=== PATIENT | male | born 1940 | race Caucasian/White ===

== ENCOUNTER 2022-03-13 01:52 | Emergency (ER) | payer MEDICARE ==
[~2022-03-13] VITALS: Ht 177.8 cm; Wt 65.8 kg
--- NOTE | 2022-03-13 02:22 | NUR ---
URINE COLLECTED AND SENT TO LAB
--- NOTE | 2022-03-13 03:03 | NUR ---
PULIDO CATH BAG ATTACHED FOR DRAINAGE, 1100ML OF DARK RED URINE NOTED
[2022-03-13 03:16] LABS: BILIRUBIN,URINE NEGATIVE (NEGATIVE); COLOR,URINE RED (YELLOW); LEUKOCYTE ESTERASE ,URINE NEGATIVE (NEGATIVE); NITRITE, URINE NEGATIVE (NEGATIVE); PROTEIN,URINE 3+ mg/dl (NEGATIVE); UGLUCOSE TRACE mg/dL (NEGATIVE); UROBILINOGEN,URINE 0.2 EU/dL (0.2)
[2022-03-13 03:17] LABS: BACTERIA,URINE None seen /HPF (None Seen); RBC,URINE TOO NUMEROUS TO COUN /HPF (0-2); SQUAMOUS EPITHELIAL CELL,UR Few /HPF (None Seen); WBC,URINE 0-2 /HPF (0-3)
--- NOTE | 2022-03-13 05:26 | NUR ---
LEG BAG APPLIED, EDUCATED PT ON LEG BAG DRAINAGE
--- NOTE | 2022-03-13 05:27 | NUR ---
Patient discharged to home in stable condition. Written and verbal after care instructions given. Patient verbalizes understanding of instruction.
[2022-03-13 05:43] VITALS: BP 121/72
[2022-03-21] MEDS ORDERED: LEVO250T59 PO (14:45)
[2022-03-21] MEDS ORDERED: FINA5TAB3 PO (14:45)
[2022-03-21] MEDS ORDERED: TAMS-12 PO (14:45)
== END 2022-03-13 05:44 | disposition home or self-care (01) ==
LOC: ER 01:57
DX: R33.9 Retention of urine, unspecified (principal); R31.9 Hematuria, unspecified
CPT/HCPCS: 99284; 51700; 81001; A4217

== ENCOUNTER 2022-03-17 19:36 | Inpatient (IN) | payer MEDICARE ==
[~2022-03-17] VITALS: Ht 177.8 cm; Wt 67.1 kg
[2022-03-17] MEDS ORDERED: LIDOCAINE 2% JEL UROJET 10 ML MM ONE (20:56)
--- NOTE | 2022-03-17 21:00 | NUR ---
PT BROUGHT IT C/O URINARY RETENTION. PT HAS A HX OF BPH WITH PROSTATE SURGERY LAST WEEK. HIS UROLOGIST DC HIS PULIDO A FEW DAYS PRIOR AND HE REPORTS WORSTENING URINARY RETNETION. PT AWAKE AND ALERT X4 BREATHING UNLABORED.
--- NOTE | 2022-03-17 21:07 | NUR ---
16fr PULIDO CATHETER INSERTED WITH 900ML YELLOW OUTPUT. NO GROSS HEMATURIA OR CLOTS NOTED. URINE SAMPLE SENT TO LAB.
[2022-03-17 21:19] LABS: BASOPHILS % (AUTO) 0.2 % (0.0-2.0); EOSINOPHILS % (AUTO) 0.1 % (0.0-6.0); HEMATOCRIT 21 % (39-51); HEMOGLOBIN 7.1 g/dL (13.5-17.5); LYMPHOCYTES # (AUTO) 0.4 K/uL (0.8-4.8); LYMPHOCYTES % (AUTO) 5.1 % (20.0-44.0); MEAN CORPUSCULAR HGB CONC 34 g/dl (31.0-36.0); MEAN CORPUSCULAR VOLUME 96 fL (80-96); MONOCYTES # (AUTO) 0.6 K/uL (0.1-1.30); MONOCYTES % (AUTO) 8.4 % (2.0-12.0); NEUTROPHILS % (AUTO) 86.2 % (43.0-81.0); PLATELET COUNT (AUTO) 166 K/uL (150-450); RED BLOOD CELL COUNT(AUTO) 2.19 MIL/uL (4.5-6.0)
[2022-03-17 21:53] LABS: CALCIUM, SERUM 8.7 mg/dL (8.5-10.1); CARBON DIOXIDE 23 mmol/L (21-32); CHLORIDE 99 mmol/L (98-107); CREATININE 2.3 mg/dL (0.6-1.3); GLUCOSE 119 mg/dL (74-106); POTASSIUM 4.8 mmol/L (3.5-5.1); SODIUM SERUM 132 mmol/L (136-145); UREA NITROGEN, BLOOD 33 mg/dL (7-18)
[2022-03-17 21:56] LABS: BILIRUBIN,URINE NEGATIVE (NEGATIVE); COLOR,URINE YELLOW (YELLOW); LEUKOCYTE ESTERASE ,URINE NEGATIVE (NEGATIVE); NITRITE, URINE NEGATIVE (NEGATIVE); PROTEIN,URINE 2+ mg/dl (NEGATIVE); UGLUCOSE NEGATIVE (NEGATIVE); UROBILINOGEN,URINE 0.2 EU/dL (0.2)
[2022-03-17 22:30] LABS: RBC,URINE 51-80 /HPF (0-2)
--- NOTE | 2022-03-17 22:30 | NUR ---
output totol 1500 ml
[2022-03-17 22:31] LABS: BACTERIA,URINE 4+ /HPF (None Seen)
[2022-03-17] MEDS ORDERED: CEPH500C2 PO (22:36)
[2022-03-17 22:39] LABS: BAND % (MANUAL) 3 % (0.0-5.0); LYMPHOCYTES % (MANUAL) 5 % (16-48); MONOCYTES % (MANUAL) 2 % (0-11.0); NEUTROPHILS % (MANUAL) 90 (42-76)
[2022-03-17] MEDS ORDERED: CEPHALEXIN MONOHYDRATE 500 MG CAPSULE PO ONE ×2 (23:00→23:03)
[2022-03-18] VITALS (10 sets, daily range): BP systolic 92–146; BP diastolic 47–84
[2022-03-18] MEDS ORDERED: ACETAMINOPHEN 325 MG TABLET PO PRN
[2022-03-18] MEDS ORDERED: MAG HYDROX/AL HYDROX/SIMETH 30 ML UDC PO PRN
[2022-03-18] MEDS ORDERED: ONDANSETRON HCL/PF 4 MG/2 ML VIAL IVP PRN
[2022-03-18] MEDS ORDERED: Z GUARD REMEDY 4 OZ OINT TP PRN
[2022-03-18] MEDS ORDERED: MAGNESIUM HYDROXIDE 30 ML UDC PO PRN
[2022-03-18] MEDS ORDERED: ZOLPIDEM TARTRATE 5 MG TABLET PO PRN
[2022-03-18] MEDS: IV NS 0.9% 1,000 ML IV PRN ×2 (00:37→10:16)
[2022-03-18] MEDS ORDERED: CEFTRIAXONE 1GM BAG (ER ONLY) 50 ML IV ONE (01:13)
--- NOTE | 2022-03-18 01:20 | NUR ---
PT BP IN 80S SY[address]IC. DR AZEVEDO NOTED WITH VERBAL ORDER FOR I LITER NS BOLUS. INITIATED AT RF 20G END TIME 0220.
[2022-03-18] MEDS: CEFTRIAXONE 1 G in IV D5W 50 ML IV SCH (01:40)
--- NOTE | 2022-03-18 02:40 | NUR ---
report given to odette
--- NOTE | 2022-03-18 03:20 | NUR ---
PT TRANSPORT TO UNIT ON [facility] WITH EMT AND RN AT BEDSIDE. NAD NOTED DURING TRANSPORT.
--- NOTE | 2022-03-18 03:30 | NUR ---
MS R AND D LAB TECHNICIAN NOTES RECEIVED FROM ER PER ADRY THIS 81 YO MALE,FROM HOME,ALERT,ORIENTED X3-4,WITH CHIEF COMPLAINT SOF URINARY RETENTION X 24 HOURS.HAD PROSTATE SURGERY ON 03/10,PULIDO CATH WAS REMOVED LAST WEDNESDAY 03/14,HE WAS TOLD IF THERES NO OUTPUT POST REMOVAL OF PULIDO,TO GO TO ER FOR FURTHER EVALUATION.IN ER,PULIDO CATH WAS RE INSERTED,TOOK OUT 1500ML OF URINE..SALINE LOCK NOTED ON RIGHT ARM,NS AT 75ML/HR RATE IN PROGRESS.DENIES PAIN DISCOMFORTS.CALL LIGHT IN REACH,NEEDS ANTICIPATED.
--- NOTE | 2022-03-18 06:23 | NUR ---
MS RN NOTES FAIRLY RESTED SINCE HE CAME TO THE UNIT.PULIDO DRAINS WELL WITH URINE.DENIES PAIN DISCOMFORTS.IN NO ACUTE DISTRESS.
[2022-03-18 06:40] LABS: BASOPHILS # (AUTO) 0.1 K/uL (0.0-0.2); EOSINOPHILS % (AUTO) 0.1 % (0.0-6.0); LYMPHOCYTES # (AUTO) 0.5 K/uL (0.8-4.8); LYMPHOCYTES % (AUTO) 10.5 % (20.0-44.0); MEAN CORPUSCULAR HGB CONC 34 g/dl (31.0-36.0); MEAN CORPUSCULAR VOLUME 98 fL (80-96); MONOCYTES # (AUTO) 0.6 K/uL (0.1-1.30); MONOCYTES % (AUTO) 12.2 % (2.0-12.0); NEUTROPHILS # (AUTO) 3.5 K/uL (1.8-8.9); NEUTROPHILS % (AUTO) 75.2 % (43.0-81.0); PLATELET COUNT (AUTO) 142 K/uL (150-450); WHITE BLOOD COUNT (AUTO) 4.6 K/uL (4.3-11.0)
[2022-03-18 06:41] LABS: RED BLOOD CELL COUNT(AUTO) 1.88 MIL/uL (4.5-6.0)
[2022-03-18 07:01] LABS: HEMATOCRIT 18 % (39-51); HEMOGLOBIN 6.2 g/dL (13.5-17.5)
--- NOTE | 2022-03-18 07:05 | NUR ---
MS RN NOTES REPORTED BY DIRECTOR CLIENT JON, PATIENT H/H 6.2.RESULT RELAYED TO [facility] FOR SAT[place].
[2022-03-18 07:14] LABS: CALCIUM, SERUM 8.2 mg/dL (8.5-10.1); CARBON DIOXIDE 22 mmol/L (21-32); CHLORIDE 104 mmol/L (98-107); CREATININE 1.9 mg/dL (0.6-1.3); GLUCOSE 101 mg/dL (74-106); MAGNESIUM 1.6 mg/dL (1.8-2.4); PHOSPHORUS 4.5 mg/dL (2.5-4.9); SODIUM SERUM 135 mmol/L (136-145); UREA NITROGEN, BLOOD 31 mg/dL (7-18)
[2022-03-18 07:15] LABS: IRON, SERUM 10 ug/dl (50-175); TOTAL IRON BINDING CAPACITY 143 ug/dl (250-450)
[2022-03-18 07:21] LABS: CHOLESTEROL 87 mg/dL (<200); HDL CHOLESTEROL 57 mg/dL (40-60); LDL 25 mg/dL (0-99); THYROID STIMULATING HORMONE 1.095 uIU/mL (0.358-3.74); TRIGLYCERIDES 43 mg/dL (30-150)
[2022-03-18] MEDS ORDERED: TAMSULOSIN 0.4 MG CAP.SR.24H PO SCH (09:00)
[2022-03-18] MEDS ORDERED: CEVI30CA4 PO (09:38)
[2022-03-18] MEDS ORDERED: MIDO5TAB4 PO (09:38)
[2022-03-18] MEDS ORDERED: LISI40TA13 PO (09:38)
[2022-03-18] MEDS ORDERED: ATOR80TA PO (09:38)
[2022-03-18] MEDS ORDERED: TAMS-12 PO (09:38)
[2022-03-18] MEDS ORDERED: EZET10TA32 PO (09:38)
[2022-03-18] MEDS: PANTOPRAZOLE 40 MG VIAL IV SCH (10:05)
[2022-03-18 11:27] LABS: BAND % (MANUAL) 7 % (0.0-5.0); LYMPHOCYTES % (MANUAL) 10 % (16-48); MONOCYTES % (MANUAL) 4 % (0-11.0); NEUTROPHILS % (MANUAL) 79 (42-76)
[2022-03-18] MEDS ORDERED: Magnesium 1GM/D5W 100ML PREMIX 100 ML IV SCH (12:00)
[2022-03-18] MEDS: FINASTERIDE (5 MG) 5 MG TABLET PO SCH (17:24)
[2022-03-18] MEDS: TAMSULOSIN 0.4 MG CAP.SR.24H PO SCH (17:24)
--- NOTE | 2022-03-18 18:32 | NUR ---
RN CLOSING NOTE PATIENT RECEIVED IN BED AND SLEEPING. A/O X4 AND [place] TO BOTH EARS. ABLE TO VERBALIZE ALL NEEDS. IV SITE TO RIGHT LOWER FOREARM INTACT AND PATENT WITH NO S/SX OF TRAUMA, BLEEDING OR INFILTRATION. PATIENT RECEIVED 1 UNIT OF PRBC ON SHIFT OVER 4HRS. TOLERATED WELL WITH NO ADVERSE REACTIONS. VS STABLE THROUGHOUT TRANSFUSION AND AFTER. PATIENT F/C REMAINS IN PLACE AND FLOWING WELL WITH OUTPUT OF CLEAR, YELLOW URINE. TOLERATED ALL MEALS AND MEDICATION ADMINISTRATION WELL. NO S/SX OF DISTRESS OR C/O PAIN ON SHIFT. SAFETY MEASURES IN PLACE WITH BED LOW AND LOCKED, SIDERAIL AND HOB UP-CALL LIGHT WITHIN REACH. WILL CONT TO MONITOR.
--- NOTE | 2022-03-18 19:30 | NUR ---
MS RN OPENING NOTE RECEIVED PT AWAKE IN BED. A/O X4 AND ABLE TO MAKE NEEDS KNOWN. PT STABLE ON ROOM AIR. NO SOB OR S/S OF RESPIRATORY DISTRESS. BREATHING EVEN AND UNLABORED. IV ACCESS RFA 20G, INTACT AND PATENT, RUNNING NS @ 75 ML/HR. PULIDO CATHETER IN PLACE DRAINING URINE BY GRAVITY. SAFETY PRECAUTIONS IN PLACE. BED IN LOWEST LOCKED POSITION, HOB ELEVATED, SIDE RAILS UP X2, AND CALL LIGHT AND TABLE WITHIN REACH. ALL NEEDS MET AT THIS TIME.
[2022-03-19] MEDS: CEFTRIAXONE 1 G in IV D5W 50 ML IV SCH (00:41)
[2022-03-19 06:52] LABS: BASOPHILS % (AUTO) 0.1 % (0.0-2.0); EOSINOPHILS % (AUTO) 0.4 % (0.0-6.0); HEMATOCRIT 22 % (39-51); HEMOGLOBIN 7.4 g/dL (13.5-17.5); LYMPHOCYTES # (AUTO) 0.4 K/uL (0.8-4.8); LYMPHOCYTES % (AUTO) 9.8 % (20.0-44.0); MEAN CORPUSCULAR HGB CONC 34 g/dl (31.0-36.0); MEAN CORPUSCULAR VOLUME 92 fL (80-96); MONOCYTES # (AUTO) 0.5 K/uL (0.1-1.30); MONOCYTES % (AUTO) 10.5 % (2.0-12.0); NEUTROPHILS # (AUTO) 3.6 K/uL (1.8-8.9); NEUTROPHILS % (AUTO) 79.2 % (43.0-81.0); PLATELET COUNT (AUTO) 124 K/uL (150-450); RED BLOOD CELL COUNT(AUTO) 2.34 MIL/uL (4.5-6.0); WHITE BLOOD COUNT (AUTO) 4.5 K/uL (4.3-11.0)
--- NOTE | 2022-03-19 06:52 | NUR ---
MS RN CLOSING NOTE PT AWAKE IN BED. A/O X4 AND ABLE TO MAKE NEEDS KNOWN. PT STABLE ON ROOM AIR. NO SOB OR S/S OF RESPIRATORY DISTRESS. BREATHING EVEN AND UNLABORED. IV ACCESS RFA 20G, INTACT AND PATENT, RUNNING NS @ 75 ML/HR. PULIDO CATHETER IN PLACE DRAINING URINE BY GRAVITY DRAINED 2200 CC THIS SHIFT. ALL DUE MEDS GIVEN ORDERED. SAFETY PRECAUTIONS IN PLACE AT ALL TIMES. BED IN LOWEST LOCKED POSITION, HOB ELEVATED, SIDE RAILS UP X2, AND CALL LIGHT AND TABLE WITHIN REACH. ALL NEEDS MET AT THIS TIME AND WILL ENDORSE TO COMING NURSE FOR SATISH.
[2022-03-19] MEDS: IV NS 0.9% 1,000 ML IV PRN (07:08)
[2022-03-19 07:24] LABS: CALCIUM, SERUM 8.1 mg/dL (8.5-10.1); CARBON DIOXIDE 23 mmol/L (21-32); CHLORIDE 101 mmol/L (98-107); CREATININE 1.6 mg/dL (0.6-1.3); GLUCOSE 101 mg/dL (74-106); MAGNESIUM 1.6 mg/dL (1.8-2.4); PHOSPHORUS 3.2 mg/dL (2.5-4.9); POTASSIUM 3.5 mmol/L (3.5-5.1); SODIUM SERUM 131 mmol/L (136-145); UREA NITROGEN, BLOOD 29 mg/dL (7-18)
[2022-03-19 08:00] VITALS: BP 115/70
--- NOTE | 2022-03-19 08:20 | NUR ---
RN OPENING NOTE RECEIVED PATIENT IN BED, AO X 4. ABLE TO RESPONDS PHYSICAL STIMULI. RESPIRATORY EVEN AND UNLABORED ROOM AIR. IN NO ACUTE DISTRESS OBSERVED. SKIN IS WARM TO TOUCH, KEEP CLEAN/DRY. KEPT ELEVATED HOB FOR ASPIRATION PRECAUTION/ENSURE AIRWAY, AND LOWEST BED POSITIONED. BED ALARM IS ON AT ALL THE TIME FOR SAFETY. CALL LIGHT WITHIN REACH, WILL CONTINUE TO MONITOR.
[2022-03-19] MEDS: PANTOPRAZOLE 40 MG VIAL IV SCH (09:12)
[2022-03-19] MEDS: TAMSULOSIN 0.4 MG CAP.SR.24H PO SCH ×2 (09:13→16:45)
[2022-03-19] MEDS: FINASTERIDE (5 MG) 5 MG TABLET PO SCH (09:13)
[2022-03-19] MEDS ORDERED: MAGNESIUM OXIDE 400 MG TABLET PO ONE (10:00)
[2022-03-19 13:42] LABS: OCCULT BLOOD STOOL NEGATIVE (NEGATIVE)
[2022-03-19 16:00] VITALS: BP 112/74
--- NOTE | 2022-03-19 18:57 | NUR ---
RN CLOSING NOTE PATIENT RESTING IN BED. IN NO ACUTE DISTRESS OBSERVED. RESPIRATORY EVEN AND UNLABORED ON ROOM AIR. SKIN IS WARM TO TOUCH KEEP CLEAN/DRY. KEPT ELEVATED HOB FOR ENSURE AIRWAY/ASPIRATION PRECAUTION, AND LOWEST BED POSITION. BED ALARM IS ON AT ALL THE TIME FOR SAFETY. 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
--- NOTE | 2022-03-19 19:38 | NUR ---
MS RN OPENING NOTE RECEIVED PT AWAKE IN BED. A/O X4 AND ABLE TO MAKE NEEDS KNOWN. PT STABLE ON ROOM AIR. NO SOB/RESPIRATORY NOTED,. BREATHING EVEN AND UNLABORED. IV ACCESS RFA 20G, INTACT AND PATENT, RUNNING NS @ 75 ML/HR. PULIDO CATHETER IN PLACE DRAINING URINE BY GRAVITY. SAFETY PRECAUTIONS IN PLACE. BED IN LOWEST LOCKED POSITION, SIDE RAILS UP X2, AND CALL LIGHT AND TABLE WITHIN REACH.WILL CONTINUE TO MONITOR.
[2022-03-19 20:00] VITALS: BP 106/61
[2022-03-20] MEDS: CEFTRIAXONE 1 G in IV D5W 50 ML IV SCH (00:14)
[2022-03-20] MEDS: IV NS 0.9% 1,000 ML IV PRN ×2 (06:16→16:48)
--- NOTE | 2022-03-20 06:26 | NUR ---
MS RN CLOSING NOTE; PT AWAKE IN BED AA/O X4 ABLE TO MAKE NEEDS KNOWN.MEREDITH WELL ON ROOM AIR. NO SOB/DISTRESS NOTED,. BREATHING EVEN AND UNLABORED.ALL NEEDS ATTENDED,DUE MEDS GIVEN ORDER, IV ACCESS RFA 20G, INTACT AND PATENT, RUNNING NS @ 75 ML/HR. PULIDO CATHETER IN PLACE DRAINING URINE BY GRAVITY OUTPUT 1300ML,SAFETY PRECAUTIONS IN PLACE. BED IN LOWEST LOCKED POSITION, SIDE RAILS UP X2, AND CALL LIGHT AND TABLE WITHIN REACH.WILL ENDORSED TO NEXT SHIFT.
[2022-03-20 06:31] LABS: BASOPHILS % (AUTO) 0.1 % (0.0-2.0); EOSINOPHILS % (AUTO) 0.9 % (0.0-6.0); HEMATOCRIT 21 % (39-51); HEMOGLOBIN 7.4 g/dL (13.5-17.5); LYMPHOCYTES # (AUTO) 0.5 K/uL (0.8-4.8); MEAN CORPUSCULAR HGB CONC 35 g/dl (31.0-36.0); MEAN CORPUSCULAR VOLUME 92 fL (80-96); MONOCYTES # (AUTO) 0.3 K/uL (0.1-1.30); MONOCYTES % (AUTO) 9.9 % (2.0-12.0); NEUTROPHILS # (AUTO) 2.6 K/uL (1.8-8.9); NEUTROPHILS % (AUTO) 74.1 % (43.0-81.0); PLATELET COUNT (AUTO) 121 K/uL (150-450); RED BLOOD CELL COUNT(AUTO) 2.33 MIL/uL (4.5-6.0); WHITE BLOOD COUNT (AUTO) 3.5 K/uL (4.3-11.0)
[2022-03-20 06:41] LABS: CARBON DIOXIDE 24 mmol/L (21-32); CHLORIDE 104 mmol/L (98-107); CREATININE 1.4 mg/dL (0.6-1.3); GLUCOSE 101 mg/dL (74-106); MAGNESIUM 1.6 mg/dL (1.8-2.4); PHOSPHORUS 3.5 mg/dL (2.5-4.9); POTASSIUM 3.7 mmol/L (3.5-5.1); SODIUM SERUM 135 mmol/L (136-145); UREA NITROGEN, BLOOD 25 mg/dL (7-18)
[2022-03-20 08:00] VITALS: BP 119/65
[2022-03-20] MEDS: FINASTERIDE (5 MG) 5 MG TABLET PO SCH (08:23)
[2022-03-20] MEDS: TAMSULOSIN 0.4 MG CAP.SR.24H PO SCH ×2 (08:23→16:46)
[2022-03-20] MEDS: Magnesium 1GM/D5W 100ML PREMIX 100 ML IV SCH ×2 (08:23→09:28)
[2022-03-20] MEDS ORDERED: PANTOPRAZOLE 40 MG VIAL IV SCH (09:00)
[2022-03-20] MEDS ORDERED: PANTOPRAZOLE 40 MG TABLET.DR PO SCH (09:00)
--- NOTE | 2022-03-20 11:00 | NUR ---
PATIENT NOTED HEMATURIA, DR. TINEO MADE AWARE AND RECIEVED NEW ORDER: IRRIGATION ORDER THROUGH PULIDO CATH. NOTED AND CARRY OUT.
[2022-03-20 16:00] VITALS: BP 110/58
--- NOTE | 2022-03-20 16:17 | NUR ---
PATIENT PROVIDED BLADDER IRRIGATION X 2, CHARACTERISTIC OF IRRIGATION IS THE BRIGHT ORANGE IN COLOR, WILL CONTINUE TO MONITOR CLOSELY.
--- NOTE | 2022-03-20 18:00 | NUR ---
RN CLOSING NOTE PATIENT RESTING IN BED. IN NO ACUTE DISTRESS OBSERVED. PROVIDED BLADDER IRRIGATION X 3, NO BLOOD CLOT AND ACTIVE BLEEDING AND PINK COLOR OF CHARACTERISTIC IRRIGATION NOTED. RESPIRATORY EVEN AND UNLABORED ON ROOM AIR. SKIN IS WARM TO TOUCH KEEP CLEAN/DRY. KEPT ELEVATED HOB FOR ENSURE AIRWAY/ASPIRATION PRECAUTION, AND LOWEST BED POSITION. BED ALARM IS ON AT ALL THE TIME FOR SAFETY. 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
--- NOTE | 2022-03-20 19:18 | NUR ---
MS RN OPENING NOTE RECEIVED PT AWAKE IN BED. A/O X4 AND ABLE TO MAKE NEEDS KNOWN.MEREDITH WELL ON ROOM AIR. NO SOB/DISTRESS NOTED,. BREATHING EVEN AND UNLABORED. IV ACCESS RFA 20G, INTACT AND PATENT, RUNNING NS @ 75 ML/HR. PULIDO CATHETER IN PLACE DRAINING URINE BY GRAVITY. SAFETY PRECAUTIONS IN PLACE. BED IN LOWEST LOCKED POSITION, SIDE RAILS UP X2, AND CALL LIGHT AND TABLE WITHIN REACH.WILL CONTINUE TO MONITOR.
[2022-03-20 20:39] VITALS: BP 102/68
[2022-03-21] MEDS: CEFTRIAXONE 1 G in IV D5W 50 ML IV SCH (00:32)
[2022-03-21] MEDS: IV NS 0.9% 1,000 ML IV PRN ×2 (04:40→09:51)
--- NOTE | 2022-03-21 06:19 | NUR ---
MS RN CLOSING NOTE; PT AWAKE IN BED AA/O X4 ABLE TO MAKE NEEDS KNOWN.MEREDITH WELL ON ROOM AIR. NO SOB/DISTRESS NOTED,. BREATHING EVEN AND UNLABORED.ALL NEEDS ATTENDED,DUE MEDS GIVEN ORDER, IV ACCESS RFA 20G, INTACT AND PATENT, RUNNING NS @ 75 ML/HR. PULIDO CATHETER IN PLACE DRAINING URINE BY GRAVITY OUTPUT 1200ML,SAFETY PRECAUTIONS IN PLACE. BED IN LOWEST LOCKED POSITION, SIDE RAILS UP X2, AND CALL LIGHT AND TABLE WITHIN REACH.WILL ENDORSED TO NEXT SHIFT.
[2022-03-21 06:39] LABS: BASOPHILS % (AUTO) 0.4 % (0.0-2.0); EOSINOPHILS % (AUTO) 0.9 % (0.0-6.0); HEMATOCRIT 22 % (39-51); HEMOGLOBIN 7.6 g/dL (13.5-17.5); LYMPHOCYTES # (AUTO) 0.4 K/uL (0.8-4.8); LYMPHOCYTES % (AUTO) 12.1 % (20.0-44.0); MEAN CORPUSCULAR HGB CONC 34 g/dl (31.0-36.0); MEAN CORPUSCULAR VOLUME 96 fL (80-96); MONOCYTES # (AUTO) 0.3 K/uL (0.1-1.30); MONOCYTES % (AUTO) 9.1 % (2.0-12.0); NEUTROPHILS # (AUTO) 2.8 K/uL (1.8-8.9); NEUTROPHILS % (AUTO) 77.5 % (43.0-81.0); PLATELET COUNT (AUTO) 122 K/uL (150-450); RED BLOOD CELL COUNT(AUTO) 2.31 MIL/uL (4.5-6.0); WHITE BLOOD COUNT (AUTO) 3.7 K/uL (4.3-11.0)
[2022-03-21 07:01] LABS: CALCIUM, SERUM 8.1 mg/dL (8.5-10.1); CREATININE 1.2 mg/dL (0.6-1.3); MAGNESIUM 1.8 mg/dL (1.8-2.4); PHOSPHORUS 3.3 mg/dL (2.5-4.9); POTASSIUM 3.6 mmol/L (3.5-5.1)
[2022-03-21 08:00] VITALS: BP 113/55
[2022-03-21] MEDS ORDERED: PANTOPRAZOLE 40 MG TABLET.DR PO SCH (09:00)
[2022-03-21] MEDS: TAMSULOSIN 0.4 MG CAP.SR.24H PO SCH (09:50)
[2022-03-21] MEDS: FINASTERIDE (5 MG) 5 MG TABLET PO SCH (09:50)
--- NOTE | 2022-03-21 10:33 | NUR ---
RN NOTES RECEIVED PT - AWAKE IN BED A&O X4 ABLE, FULL OF QUESTIONS, GAVE ANSWERS IN A TIMELY MANNER TO HELP EASE HIS ANXIETY AND CONCERN, PT ABLE TO MAKE NEEDS KNOWN, PT IS ON ROOM AIR, MAINTAINING 98% + TOLERATING WELL, NO SOB & NO DISTRESS NOTED,. BREATHING EVEN AND UNLABORED.ALL NEEDS ATTENDED,DUE MEDS GIVEN ORDER, IV ACCESS RFA 20G, INTACT AND PATENT, RUNNING NS @ 75 ML/HR. PULIDO CATHETER IN PLACE DRAINING URINE BY GRAVITY OUTPUT 1200ML IT IS INTACT WORKING PROPERLY AND PT STATING NO PAIN AT SITE, NO S/S OF ANY INFECTION, SAFETY PRECAUTIONS IN PLACE - BED IS IN LOWEST POSITION, SIDE WHEELS ARE ALL LOCKED, SIDE RAILS UP X2, AND CALL LIGHT IS IN REACH, WILL CONTINUE TO MONITOR & PT IS BEING COMPLIANT WITH CARE JUST FULL OF QUESTIONS.
[2022-03-21] MEDS ORDERED: LEVOFLOXACIN (250MG) 250 MG TABLET PO SCH (13:00)
[2022-03-21] MEDS ORDERED: FINA5TAB3 PO (14:45)
[2022-03-21] MEDS ORDERED: LEVO250T59 PO (14:45)
[2022-03-21] MEDS ORDERED: TAMS-12 PO (14:45)
--- NOTE | 2022-03-21 16:29 | NUR ---
RN NOTES PT RECEIVED D/C ORDERS TO GO HOME AND RECEIVE HOME HEALTHCARE, F/C TO REMAIN INTACT, IV SITE D/C NO S/S OF ANY INFILTRATION NOR INFECTION NOTED SITE IS CLEAN DRY AND GAUZE APPLIED, NO ACCESSIVE BLEEDING NOTED, PT TRANSFERRED OUT OF BED TO WHEEL CHAIR AND A SAFE TRANSFER TO VEHICLE WITH TO DRIVE HIM HOME FOR HOME HEALTH CARE.
== END 2022-03-21 18:15 | disposition home health service (06) | DRG 725 ==
LOC: ER 19:43 → MED 03-18 02:37
PROVIDERS: ADMIT Nurse Practitioner Acute Care; ATTEND Student in an Organized Health Care Education/Training Program
PROC: 30233N1 Transfusion of Nonautologous Red Blood Cells into Peripheral Vein, Percutaneous Approach (ICD-10-PCS; principal; 2022-03-18)
DX: N40.1 Benign prostatic hyperplasia with lower urinary tract symptoms (principal); N17.0 Acute kidney failure with tubular necrosis; N39.0 Urinary tract infection, site not specified; N02.9 Recurrent and persistent hematuria with unspecified morphologic changes; N13.6 Pyonephrosis; R33.8 Other retention of urine; I10 Essential (primary) hypertension; D63.8 Anemia in other chronic diseases classified elsewhere; Z79.890 Hormone replacement therapy; B95.2 Enterococcus as the cause of diseases classified elsewhere
CPT/HCPCS: 36415; 71045-TC; 76770-TC; 80048-TC; 80061-TC; 81001; 82272-TC; 83540-TC; 83735-TC; 84100-TC; 84443-TC; 85025-TC; 85610-TC; 85730-TC; 86850-TC; 87081-TC; 87086-TC; 97116-TC; 97530-TC; A4217; C9113; C9803; G0378; J0696; J3475; J3490; J7030; J7040; J7060; P9016